=== PATIENT | female | born 1935 | race Caucasian/White ===

== ENCOUNTER → 2018-11-23 | Outpatient (CLI) | payer MEDICARE ==
[~2018-11-23] MED LIST: GADOTERATE 7.5 MMOL/15ML VIAL. IVP ONE; LOVA20TA2 PO; METO-239 PO
--- NOTE | 2018-11-23 13:53 | KCIC ---
MRI Lumbar Spine without and with contrast History: Low back pain, previous surgery, lifting injury about one week ago, bilateral radiculopathy Technique: Multiplanar, multi sequential pre and postcontrast MR imaging was performed of the lumbar spine. Comparison: None Findings: Lumbar vertebral body stature is maintained. Conus terminates at L1-2. There is no nodular enhancement of the conus or cauda equina, no enhancement in the intervertebral disc spaces. There is very minimal posterior subluxation L3 relative to L4 and L2 relative to L3. There is mild degenerative disease L2-3 and L3-4, mild disc desiccation at other levels. There is trace edema of the anterior superior corners of L3 and L2 probably reactive/degenerative in etiology, also minimally of the superior right L5 endplate. 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 There is very mild dextroscoliosis of lumbar spine. L1-L2: There is a very shallow posterior protrusion about 2 to 3 mm AP without spinal stenosis or neural impingement. Neural foramina are adequate. There is minimal buckling of the ligamentum flavum. L2-L3: There is negligible disc osteophyte complex and bulge. There is minimal buckling of the ligamentum flavum and [id number] facet degenerative change. There is mild narrowing of the far lateral recesses somewhat greater on the left. Neural foramina are adequate. L3-L4: There is moderate to severe facet degenerative change, some fluid in the facet articulations bilaterally. There is mild buckling of the ligamentum flavum. There is negligible disc osteophyte complex and bulge. There is mild narrowing of the far lateral recesses bilaterally. There is very mild inferior narrowing of the left neural foramen by disc osteophyte complex, right neural foramen overall adequate. L4-L5: There is negligible disc osteophyte complex and bulge. There is right laminectomy defect. There is mild buckling of the ligamentum flavum on the left. There is mild to moderate facet degenerative change greater on the left. There is mild narrowing of the far left lateral recess. There is mild to moderate narrowing of the right neural foramen by disc osteophyte complex and facet, mild narrowing on the left. L5-S1: There is [id number] facet degenerative change. There is what likely represents a nerve root sleeve cyst along the right S1 nerve root. There is a small synovial cyst lateral to the right facet articulation. Small cystic focus in the superior left neural foramen is more likely due to nerve root sleeve cyst than synovial cyst, does not result in significant impingement of the left L5 nerve root.. Neural foramina are overall adequate. There is bilateral facet hypertrophic change. There is very mild posterior narrowing of the far lateral recess. Impression: 1. 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 2. There is mild to moderate narrowing of the right L4-5 neural foramen, minimal narrowing on the left at L4-5 and L3-4. 3. There is multilevel facet degenerative change. There is mild abnormal alignment as stated. Electronically signed by: Arnaldo Stauffer MD (11/23/2018 1:50 PM) [id number]
== END | disposition home or self-care (01) ==
LOC: KCIC MRI 12:04
PROVIDERS: ATTEND Family Medicine
DX: M48.07 Spinal stenosis, lumbosacral region (principal); M51.26 Other intervertebral disc displacement, lumbar region; M25.78 Osteophyte, vertebrae; M89.38 Hypertrophy of bone, other site; M71.38 Other bursal cyst, other site; J45.909 Unspecified asthma, uncomplicated; I10 Essential (primary) hypertension; Z91.041 Radiographic dye allergy status
CPT/HCPCS: 72158; A9575